=== PATIENT | female | born 1960 ===

== ENCOUNTER 2024-02-19 12:46 | Outpatient (CLI) | payer OTHER ==
[~2024-02-19 12:46] MED LIST: ALBUTEROL2.5 MG/3 M IH; LISINOPRIL; MONTELUKA; SYNTHROID75 MCG; ZYNCOF 20-400120 ML PO
== END 2024-02-19 12:47 | disposition home or self-care (01) ==
LOC: LAB 12:46
DX: H44.19 Other endophthalmitis (principal)

== ENCOUNTER 2025-02-02 14:23 | Outpatient (CLI) | payer OTHER | END 2025-02-02 14:31 | disposition home or self-care (01) | LOC: LAB 14:23 | DX: H16.001 Unspecified corneal ulcer, right eye (principal) ==